=== PATIENT | female | born 1970 | race Caucasian/White ===

== ENCOUNTER 2021-09-03 12:00 | Emergency (ER) | payer OTHER, SELFPAY ==
[2021-09-03 12:04] VITALS: BP 162/73; PULSE 83; RESP 18; TEMP 36.9; O2SAT 99; BMI 49.7
--- NOTE | 2021-09-03 13:51 | ED.SKABFB ---
HPI - Skin/Abscess/Foreign Bdy General Chief complaint: Skin/Abscess/Foreign Body Stated complaint: Lump on abd Time Seen by Provider: 09/03/21 13:50 Source: patient Mode of arrival: ambulatory Limitations: no limitations History of Present Illness HPI narrative: 51-year-old obese diabetic presents for redness in her right lower abdomen after injecting insulin 2 days ago. No fevers, no nausea or vomiting, her blood sugar has been running at normal levels. MD complaint: rash Onset (ago): day(s) (2) Related Data Previous Rx's Medication Instructions Recorded cephalexin 500 mg capsule 500 mg PO QID 10 Days #40 cap 09/03/21 doxycycline hyclate 100 mg tablet 100 mg PO BID 10 Days #20 tab 09/03/21 Allergies Allergy/AdvReac Type Severity Reaction Status Date / Time Sulfa (Sulfonamide Allergy Intermediate ANAPHYLAXIS Verified 09/03/21 12:03 Antibiotics) [SULFA (SULFONAMIDE ANTIBIOTICS)] oxycodone [From PERCOCET] Allergy Unknown SHORTNESS Verified 09/03/21 12:03 OF BREATH lisinopril [LISINOPRIL] AdvReac Intermediate COUGH Verified 09/03/21 12:03 Review of Systems Review of Systems: Constitutional : No Weight loss, No Fever, No Chills, No Night Sweats,No Fatigue, No Malaise ENT/Mouth : No Hearing loss, No Ear Pain, No Nasal Congestion, NoSinus Pain, No Hoarseness, No sore throat, No Rhinorrhea, NoSwallowing Difficulty Eyes: No Eye Pain, No Swelling, No Redness, No Foreign Body, NoDischarge, No Vision Changes Cardiovascular : No Chest Pain, No SOB, No Dyspnea on Exertion, NoOrthopnea, No Edema, No Palpitations Respiratory : No Cough, No Sputum, No Wheezing, No Smoke Exposure, No Dyspnea Gastrointestinal : No Nausea, No Vomiting, No Diarrhea, NoConstipation, No abdominal Pain, No Hematochezia, No Melena Genitourinary : no irregular bleeding, No Dysuria, No UrinaryFrequency, No Hematuria, No Urinary Incontinence, No Urgency, No FlankPain, No Urinary Flow Changes, No Hesitancy Musculoskeletal : No joint pain, No Myalgias, No Joint Swelling Skin : red rash lower abdomen Neuro : No Weakness, No Numbness, No Paresthesias, No Loss ofConsciousness, No Dizziness, No Headache Psych : mild anxiety, tremors in hands, , No Depression, No SI/HI/AH/VH, No Social Issues, Endocrine : No Polyuria, No Polydipsia, No Temperature Intolerance [facility] Past Medical History [facility] Narrative: IDDM HTN Fatty Liver Fibromyalgias Social History Social History Advance Directives: No Advance Directives Information Provided: No Physical Exam Vital Signs: Vital Signs: Last Vital Signs Temp 98.5 F 09/03/21 12:04 Pulse 83 09/03/21 12:04 Resp 18 09/03/21 12:04 BP 162/73 H 09/03/21 12:04 Pulse Ox 99 09/03/21 12:04 BMI result Body Mass Index 49.7 Const: General: cooperative, no acute distress, well developed, alert and awake Nutritional Appearance: obese morbidly obese Orientation/consciousness: patient oriented x3 Limitations: no limitations Eyes: Conjunctivae: conjunctivae normal Pupils: Equal, round and reactive pupils present EOM: EOMs intact bilaterally Neck: Neck: Yes full ROM, Yes no lymphadenopathy and Yes supple Resp: Effort & Inspection: normal respiratory effort and able to speak in complete sentences Auscultation: clear to auscultation bilaterally, no crackles, no rales, no rhonchi and no wheezes Cardio: Rate: regular rate Rhythm: regular rhythm Heart sounds: S1 normal heart sound present and S2 normal heart sound present GI: Inspection: Yes Abdominal panniculus present and Yes obesity Palpation (GI): Soft to palpation, nontender, no guarding and not rigid Percussion: Yes normal to percussion Auscultation: normal bowel sounds Skin: Other: 10 cm area of mild erythema surrounding insulin injection site Neuro: General: patient oriented x3, tone normal and moves all extremities Cranial nerves: Yes Equal, round and reactive pupils present Extrem: General: Yes normal to inspection and Yes full ROM Psych: Appearance: grossly normal Affect: normal affect Attitude: cooperative Thought process: Normal thought process present Course Course Course Narrative: 51-year-old female with cellulitis and no palpable abscess and lower right abdomen after injecting insulin will treat with Keflex and doxycycline, gave return precautions Discharge Plan Discharge Clinical Impression: Cellulitis Patient Disposition: Home, Self-Care Instructions: Cellulitis (ED) Additional Instructions: please fill both antibiotic prescriptions and take them for 10 days. We have marked the area around your rash. If on Monday it is getting more red, or if you have fevers, worsening pain, if you feel unwell, please return to emergency room. Prescriptions: New doxycycline hyclate 100 mg tablet 100 mg PO BID 10 Days Qty: 20 0RF cephalexin 500 mg capsule 500 mg PO QID 10 Days Qty: 40 0RF
== END 2021-09-03 14:18 | disposition home or self-care (01) ==
PROVIDERS: Emergency Provider Emergency Medicine
DX: L03.311 Cellulitis of abdominal wall (principal); E11.9 Type 2 diabetes mellitus without complications; Z79.899 Other long term (current) drug therapy; Z79.4 Long term (current) use of insulin
CPT/HCPCS: 99283

== ENCOUNTER 2021-12-02 11:17 | Emergency (ER) | payer OTHER, SELFPAY ==
[2021-12-02 11:46] VITALS: BP 196/75; PULSE 77; RESP 18; TEMP 36.6; O2SAT 96; BMI 51.9
[2021-12-02] MEDS: Acetaminophen 325 MG TABLET 975 MG PO (15:54)
[2021-12-02 15:55] VITALS: BP 198/78; PULSE 79; RESP 18; O2SAT 99
== END 2021-12-02 20:34 | disposition left against medical advice (07) ==
PROVIDERS: Emergency Provider Emergency Medicine
DX: I10 Essential (primary) hypertension (principal)
CPT/HCPCS: 99283

== ENCOUNTER 2024-09-22 19:47 | Emergency (ER) | payer OTHER, SELFPAY ==
--- NOTE | 2024-09-22 20:31 | ED_ITS ---
HPI - Abdominal Pain General Chief Complaint: Abdominal Pain Stated Complaint: Stomach pain, vomiting Time Seen by Provider: 09/23/24 01:35 Source: patient Mode of arrival: ambulatory Limitations: no limitations History of Present Illness ED Provider: HPI narrative: Patient is otherwise healthy having nausea vomiting diarrhea since yesterday vomited about 7 -8 times and same number amount watery diarrhea with the abdominal cramps no fever had some chills no urinary symptoms does have diffuse abdominal cramps patient is diabetic blood sugar was elevated to 373 as she missed her insulin tonight no recent travel no bad food intake no antibiotic intake patient's grandson also had same symptoms 3 days ago patient denies any dysuria Related Data Previous Rx's ?Medication ?Instructions ?Recorded cephalexin 500 mg capsule 500 mg PO QID 10 days #40 caps 09/03/21 doxycycline hyclate 100 mg tablet 100 mg PO BID 10 days #20 tabs 09/03/21 cefuroxime axetil 500 mg tablet 500 mg PO BID 7 days #14 tabs 09/23/24 loperamide 2 mg tablet (Imodium 2 mg PO Q6H PRN loose stool #14 09/23/24 A-D) tabs ondansetron 4 mg disintegrating 4 mg PO Q6-8H PRN nausea and 09/23/24 tablet vomiting #10 tabs Allergies Allergy/AdvReac Type Severity Reaction Status Date / Time Sulfa (Sulfonamide Allergy Intermediate ANAPHYLAXIS Verified 09/22/24 20:37 Antibiotics) [SULFA (SULFONAMIDE ANTIBIOTICS)] oxycodone [From PERCOCET] Allergy Unknown SHORTNESS Verified 09/22/24 20:37 OF BREATH semaglutide [From Ozempic] Allergy Abdominal Verified 09/22/24 20:37 Pain lisinopril [LISINOPRIL] AdvReac Intermediate COUGH Verified 09/22/24 20:37 Review of Systems Review of Systems Yes all other systems are reviewed and are negative PMFSH Past Medical History Medical History HTN (hypertension) Social History Social History Advance Directives: No Advance Directives Information Provided: Yes Physical Exam ED Vital Signs: Vital Signs - 24 hr 09/22/24 20:32 09/23/24 02:00 Temperature 100.0 F 98.6 F Pulse Rate 98 86 Respiratory Rate 18 18 Blood Pressure 148/69 H 119/60 Pulse Oximetry 99 94 Oxygen Delivery Method Room Air Room Air BMI result Body Mass Index 49.0 Appearance: Alert. Oriented X3. No acute distress. Eyes: No pallor or icterus ENT: Pharynx normal. Oral Mucosa moist Neck: Normal inspection. Neck supple. CVS: Normal heart rate and rhythm. Pulses normal. Respiratory: No respiratory distress. Equal air entry bilateral, no wheezing/rales/rhonchi Abdomen: Soft and mild diffuse tenderness. Bowel sounds are present, no mass palpable, no CVA tenderness Skin: Skin warm and dry. Normal skin color. Normal skin turgor. Extremities: No lower extremity edema. No calf tenderness Neuro: Oriented X 3. No motor deficit. Course Course Course Narrative: This is a Rapid Medical Exam performed in triage by Barbara Allen PA-C. Full HPI, ROS and PE to be performed by primary ED provider. 54-year-old female with a past medical history of hypertension presenting to the ED c/o diarrhea x yesterday, now w/subj fever, periumbilical abdominal pain, nausea & vomiting x today. +decreased PO intake. +sick contact w/similar sx. denies travel, suspicious food intake PE: abdomen soft & nontender Plan: labs, UA, viral testing, stool studies Medical Decision Making Medical Decision Making [facility] Narrative: Patient with acute gastroenteritis likely viral C diff test is negative also urine was positive for UTI will prescribe Ceftin, patient had hyperglycemia as she missed her insulin tonight was given in the clinic Lab Data [facility] Lab Attestation statement: I reviewed the patient's lab results. 09/22/24 21:20 09/22/24 21:20 Labs: Lab Results 09/22/24 09/23/24 09/23/24 Range/Units 21:20 02:14 02:51 WBC 8.6 (4.8-10.8) X10*3/uL RBC 5.13 (4.20-5.50) X10*6/uL Hgb 14.6 (12.0-16.0) g/dl Hct 43.0 (37.0-47.0) % MCV 83.8 (80.0-98.0) fL MCH 28.5 (27.0-33.0) pg MCHC 34.0 (31.0-35.0) g/dl RDW 11.9 (11.0-16.0) % Plt Count 283 (160-400) X10*3/uL MPV 11.0 (9.4-12.3) fL Immature Gran % (Auto) 0.3 (0.0-0.4) % Neut % (Auto) 88.1 H (45-73) % Lymph % (Auto) 4.4 L (20-40) % [place] % (Auto) 6.3 (2-11) % Eos % (Auto) 0.8 (0-4) % Baso % (Auto) 0.1 (0-2) % Lymph # (Auto) 0.4 L (1.2-4.9) X10*3/uL [place] # (Auto) 0.5 (0.1-1.2) X10*3/uL Eos # (Auto) 0.1 (0.0-0.4) X10*3/uL Baso # (Auto) 0.0 (0.0-0.2) X10*3/uL Abs Immat Gran (auto) 0.03 (0.00-0.03) X10*3/uL Absolute Neuts (auto) 7.6 (2.0-8.3) x10*3/uL Absolute Nucleated RBC 0.000 (0.0-0.012) X10*3/uL Nucleated RBC % (auto) 0.0 (0.0-0.2) /100WBC Sodium 136 (135-145) mmol/L Potassium 3.7 (3.3-5.1) mmol/L Chloride 102 (96-108) mmol/L Carbon Dioxide 23 (22-29) mmol/L Anion Gap 15 (12-20) BUN 15 (9-16) mg/dL Creatinine 0.78 (0.5-1.4) mg/dL Estim Creat Clear Calc 114.1 Estimated GFR > 60 POC Glucose 343 H (60-115) mg/dL Random Glucose 373 H* (60-115) mg/dL Calcium 9.1 (8.4-10.2) mg/dL Magnesium 1.6 (1.6-2.6) mg/dL Total Bilirubin 1.0 (0.0-1.0) mg/dL Direct Bilirubin 0.3 (0.0-0.5) mg/dL AST 41 H (5-31) U/L ALT 61 H (0-31) U/L Alkaline Phosphatase 98 (39-117) U/L Total Protein 7.5 (6.5-8.0) g/dL Albumin 3.7 (3.5-5.0) g/dL Lipase 22 (8-78) U/L Urine Color Coke A Urine Appearance Turbid Urine pH 5.5 (5.0-9.0) Ur Specific [place] >= 1.030 H (1.005-1.025) Urine Protein 100 (2+) H (Neg-Trace) mg/dL Urine Glucose (UA) 500 H (Negative) mg/dL Urine Ketones 15 (Negative) mg/dL Urine Blood Negative (Negative) Urine Nitrite Positive H (Negative) Ur Leukocyte Esterase Moderate (2+) H (Negative) Urine RBC 0-2 (0-2) /HPF Urine WBC >50 H (0-5) /HPF Ur Squamous Epith Cells >20 (0-2) /HPF Urine Bacteria 4+ (None Seen) Hyaline Casts 3-5 (0-2) /LPF C. difficile Tox B Gene NEGATIVE (Negative) Influenza Type A (PCR) NEGATIVE (Negative) Influenza Type B (PCR) NEGATIVE (Negative) RSV RNA Qual (PCR) NEGATIVE (Negative) SARS-CoV-2 RNA (RT-PCR) NEGATIVE (Negative) Medications Administered Discontinued Medications Generic Name Dose Route Start Last Admin Trade Name Freq PRN Reason Stop Dose Admin Cefuroxime Axetil 500 mg 09/23/24 01:40 09/23/24 02:03 Cefuroxime Axetil 500 Mg Tablet PO 09/23/24 01:41 500 mg ONCE ONE Administration Insulin Human Lispro 8 unit 09/23/24 02:54 09/23/24 03:20 Insulin Lispro 100 Unit/Ml 3 Ml Vial SUBCUT 09/23/24 02:55 8 unit ONCE ONE Administration Discharge Plan Discharge Clinical Impression: Gastroenteritis, UTI (urinary tract infection) Patient Disposition: Home, Self-Care Instructions: Urinary Tract Infection in Women (DC), Gastroenteritis (DC) Additional Instructions: Drink plenty of fluids Take antibiotic for urinary tract infection Medicine for nausea and diarrhea as prescribed Report to the ER/PCP if not better Prescriptions: New cefuroxime axetil 500 mg tablet 500 mg PO BID 7 Days Qty: 14 0RF ondansetron 4 mg tablet,disintegrating 4 mg PO Q6-8H PRN (Reason: nausea and vomiting) Qty: 10 0RF loperamide [Imodium A-D] 2 mg tablet 2 mg PO Q6H PRN (Reason: loose stool) Qty: 14 0RF No Action doxycycline hyclate 100 mg tablet 100 mg PO BID 10 Days Qty: 20 0RF cephalexin 500 mg capsule 500 mg PO QID 10 Days Qty: 40 0RF Print Language: German
[2024-09-22 20:32] VITALS: BP 148/69; PULSE 98; RESP 18; TEMP 37.8; O2SAT 99; BMI 49.0
[2024-09-22 21:26] LABS: MANUAL DIFF FLAG NO
[2024-09-22 21:28] LABS: Basophils Percent Auto 0.1 % (0-2); Eosinophils Absolute Auto 0.1 X10*3/uL (0.0-0.4); Eosinophils Percent Auto 0.8 % (0-4); Hemoglobin 14.6 g/dl (12.0-16.0); Imm Gran Abs Auto 0.03 X10*3/uL (0.00-0.03); Imm Gran Pct Auto 0.3 % (0.0-0.4); Lymphocytes Absolute Auto 0.4 X10*3/uL (1.2-4.9); Lymphocytes Percent Auto 4.4 % (20-40); Mean Corpuscular Hemoglobin 28.5 pg (27.0-33.0); Mean Corpuscular Volume 83.8 fL (80.0-98.0); Monocytes Absolute Auto 0.5 X10*3/uL (0.1-1.2); Monocytes Percent Auto 6.3 % (2-11); Neutrophils Absolute Auto 7.6 x10*3/uL (2.0-8.3); Neutrophils Percent Auto 88.1 % (45-73); Platelet Count 283 X10*3/uL (160-400); Red Blood Count 5.13 X10*6/uL (4.20-5.50); Red Cell Distribution Width 11.9 % (11.0-16.0); White Blood Count 8.6 X10*3/uL (4.8-10.8)
[2024-09-22 21:30] LABS: Appearance Urine Turbid; Color Urine Orange; Glucose Urine UA 500 mg/dL (Negative); Leukocyte Esterase Urine Moderate (2+) (Negative); Nitrite Urine Positive (Negative); PH 5.5 (5.0-9.0); Specific Gravity - Urine >= 1.030 (1.005-1.025); UMIC TRIGGER UACC YES; Urine Blood Negative (Negative); Urine Ketones 15 mg/dL (Negative); Urine Protein 100 (2+) mg/dL (Neg-Trace)
[2024-09-22 21:38] LABS: Bacteria Urine 4+ (None Seen); RBC Urine 0-2 /HPF (0-2); Squamous Epithelial Cell Urine >20 /HPF (0-2); UACC Culture Trigger YES; WBC Urine >50 /HPF (0-5)
[2024-09-22 21:52] LABS: Alanine Aminotransferase 61 U/L (0-31); Albumin Level 3.7 g/dL (3.5-5.0); Alkaline Phosphatase 98 U/L (39-117); Anion Gap 15 (12-20); Aspartate Amino Transferase 41 U/L (5-31); Bilirubin Direct 0.3 mg/dL (0.0-0.5); Blood Urea Nitrogen 15 mg/dL (9-16); Calcium 9.1 mg/dL (8.4-10.2); Carbon Dioxide 23 mmol/L (22-29); Chloride 102 mmol/L (96-108); Creatinine Clr Calc Pharmacy 114.1; Estimated Glomerular Filt Rate > 60; Glucose Random 373 mg/dL (60-115); Lipase 22 U/L (8-78); Magnesium 1.6 mg/dL (1.6-2.6); Potassium 3.7 mmol/L (3.3-5.1); Sodium 136 mmol/L (135-145); Total Protein 7.5 g/dL (6.5-8.0)
[2024-09-22 22:05] LABS: Influenza A PCR NEGATIVE (Negative); Influenza B PCR NEGATIVE (Negative); Resp Syncy Virus RNA Qual PCR NEGATIVE (Negative); SARS COV2 PCR INHOUSE NEGATIVE (Negative)
[2024-09-23 02:00] VITALS: BP 119/60; PULSE 86; RESP 18; TEMP 37; O2SAT 94
[2024-09-23] MEDS: cefuroxime axetiL 500 MG TABLET PO (02:03)
[2024-09-23 02:18] LABS: Glucose, Whole Blood 343 mg/dL (60-115)
[2024-09-23] MEDS: Insulin Lispro 100 UNIT/ML 3 ML VIAL 8 UNIT SUBCUT (03:20)
[2024-09-23 03:50] LABS: CDiff Gene PCR NEGATIVE (Negative)
[2024-09-23 04:23] VITALS: BP 126/58; PULSE 81; RESP 16; TEMP 37.1; O2SAT 98
[2024-09-23 04:30] VITALS: BP 126/58; PULSE 81; RESP 16; TEMP 37.1; O2SAT 98
[2024-09-23 10:00] LABS: Adenovirus F 40/41 Not Detected (Not Detect.); Astrovirus Not Detected (Not Detect.); Campylobacter Not Detected (Not Detect.); Cryptosporidium Not Detected (Not Detect.); Cyclospora cayetanensis Not Detected (Not Detect.); E. coli EAEC Not Detected (Not Detect.); E. coli EPEC Detected (Not Detect.); E. coli ETEC Not Detected (Not Detect.); E. coli STEC Not Detected (Not Detect.); Entamoeba histolytica Not Detected (Not Detect.); Giardia lamblia Not Detected (Not Detect.); Plesiomonas shigelloides Not Detected (Not Detect.); Rotavirus A Not Detected (Not Detect.); Salmonella Not Detected (Not Detect.); Sapovirus Not Detected (Not Detect.); Shigella sp./EIEC Not Detected (Not Detect.); Vibrio Not Detected (Not Detect.); Vibrio Cholerae Not Detected (Not Detect.); Yersinia enterocolitica Not Detected (Not Detect.)
[2024-09-23 10:19] LABS: Norovirus GI/GII Detected (Not Detect.)
== END 2024-09-23 04:32 | disposition home or self-care (01) ==
PROVIDERS: Physician Assistant; Emergency Provider Internal Medicine; PCP Internal Medicine
DX: K52.9 Noninfective gastroenteritis and colitis, unspecified (principal); N39.0 Urinary tract infection, site not specified; R10.2 Pelvic and perineal pain; R10.9 Unspecified abdominal pain; R11.2 Nausea with vomiting, unspecified; Z03.818 Encounter for observation for suspected exposure to other biological agents ruled out; Z79.899 Other long term (current) drug therapy
CPT/HCPCS: 0241U; 36415; 80048; 80076; 81001; 82947; 83690; 83735; 85025; 87086; 87147; 87493; 87507; 99283; 99284